=== PATIENT | male | born 1955 | race Caucasian/White ===

== ENCOUNTER 2017-08-30 12:30 | Observation (INO) | payer OTHER ==
[~2017-08-30] VITALS: Ht 170.2 cm; Wt 82.1 kg
[~2017-08-30 12:30] MED LIST: ASPIR 8181 M1 PO; CYCLOBENZAPRINE10 MG PO; ELIQUIS5 MG PO; LISINOPRIL20 MG PO; LYRICA75 MG PO; PRAVACHOL40 MG PO; PREVACID15 MG PO; VICODIN 5-3001 EACH PO
[2017-08-30 13:12] LABS: HEMATOCRIT 37.2 % (38.0-50.0); MCH 33.1 PG (29.0-34.0); MCHC 34.7 G/DL (30.0-36.0); MCV 95.4 FL (86-99); MEAN PLAT.VOLUME 9.5 uM^3 (9.0-12.4); PLATELET COUNT 188 K/uL (156-360); RBC DIS.WIDTH-CV 12.4 % (11.8-14.6); RBC DIS.WIDTH-SD 42.8 % (39-53); WHITE BLOOD COUNT 8.3 K/uL (4.1-10.2)
[2017-08-30 13:21] LABS: CHLORIDE 110 mEq/L (99-109); POTASSIUM 4.9 mEq/L (3.7-5.4); SODIUM 139 mEq/L (136-147)
[2017-08-30 13:23] LABS: GLUCOSE 145 mg/dL (70-99)
[2017-08-30 13:24] LABS: ANION GAP 7 MEQ/L (2-14)
[2017-08-30 13:25] LABS: PROTHROMBIN TIME 54.4 SEC (10.2-12.9)
[2017-08-30 13:26] LABS: GFR ESTIMATE (CALCULATED) > 59 mL/min/ (58.99-99999)
[2017-08-30 13:27] LABS: UREA NITROGEN (BUN) 18 mg/dL (9-23)
[2017-08-30 13:37] LABS: INTER. NORMALIZED RATIO 4.8
[2017-08-30] MEDS ORDERED: ADVIL,NUPRIN,M200 MG PO (14:40)
[2017-08-30] MEDS ORDERED: LISINOPRIL5 MG PO (14:41)
[2017-08-30] MEDS ORDERED: LYRICA150 MG PO (14:42)
[2017-08-30] MEDS ORDERED: LOPRESSOR25 MG PO (14:43)
[2017-08-30] MEDS ORDERED: RANITIDINE HCL150 MG PO (14:44)
[2017-08-30] MEDS ORDERED: WARFARIN SODIUM4 MG PO (14:45)
[2017-08-30] MEDS ORDERED: COUMADIN1 MG PO (14:46)
[2017-08-30] MEDS ORDERED: TAMSULOSIN HCL0.4 MG PO (14:46)
[2017-08-30] MEDS ORDERED: CLOPIDOGREL75 MG PO (14:47)
[2017-08-30] MEDS ORDERED: RANEXA500 MG PO (14:47)
[2017-08-30] MEDS ORDERED: SPIRONOLACTONE25 MG PO (14:47)
[2017-08-30] MEDS ORDERED: LORATADINE10 M2 PO (14:49)
[2017-08-30 17:21] VITALS: BP 115/69
[2017-08-30 20:00] VITALS: BP 140/91
[2017-08-30 20:07] LABS: HEMATOCRIT 34.6 % (38.0-50.0); MCV 95.8 FL (86-99)
[2017-08-30 23:35] VITALS: BP 129/76
[2017-08-31 03:54] VITALS: BP 118/71
[2017-08-31 05:46] LABS: INTER. NORMALIZED RATIO 3.9; PROTHROMBIN TIME 44.3 SEC (10.2-12.9)
[2017-08-31 05:48] LABS: MCV 94.4 FL (86-99)
[2017-08-31 06:11] LABS: ALKALINE PHOSPHATASE 52 IU/L (3-129); ANION GAP 8 MEQ/L (2-14); CHLORIDE 109 MEQ/L (99-109); GFR ESTIMATE (CALCULATED) > 59 mL/min/ (58.99-99999); GLUCOSE 116 mg/dL (70-99); POTASSIUM 4.3 MEQ/L (3.7-5.4); SAMPLE HEMOLYSIS CHECK 0; SAMPLE ICTERIC CHECK 0; SAMPLE LIPEMIA CHECK 0; SODIUM 140 MEQ/L (136-147); TOTAL BILIRUBIN 0.6 MG/DL (0.0-1.0); UREA NITROGEN (BUN) 16 mg/dL (9-23)
[2017-08-31 08:39] VITALS: BP 132/74
== END 2017-08-31 11:17 | disposition home or self-care (01) ==
LOC: EME 12:30 → EDOF 14:23 → ENRESERV 14:27 → 5WEST 16:23
PROVIDERS: Emergency Medicine; Internal Medicine
DX: K92.2 Gastrointestinal hemorrhage, unspecified (principal); R79.1 Abnormal coagulation profile; D64.9 Anemia, unspecified; I48.91 Unspecified atrial fibrillation; Z79.01 Long term (current) use of anticoagulants; I25.10 Atherosclerotic heart disease of native coronary artery without angina pectoris; I34.1 Nonrheumatic mitral (valve) prolapse; E11.9 Type 2 diabetes mellitus without complications; I10 Essential (primary) hypertension; E78.5 Hyperlipidemia, unspecified; M79.7 Fibromyalgia; M19.90 Unspecified osteoarthritis, unspecified site; Z95.810 Presence of automatic (implantable) cardiac defibrillator; Z79.82 Long term (current) use of aspirin; Z79.02 Long term (current) use of antithrombotics/antiplatelets; Z72.0 Tobacco use; Z88.0 Allergy status to penicillin
CPT/HCPCS: 71275; 74177; 80048; 80053; 82272; 85014; 85018; 85027; 85610; 86850; 86900; 86901; 87493; 93005; 99281; 99285; C9113; G0378; J7030